=== PATIENT | male | born 1950 | race Caucasian/White ===

== ENCOUNTER 2019-12-10 08:21 | Day surgery (SDC) | payer MEDICARE ==
[2019-12-10] MEDS ORDERED: Sodium Chloride 0.9% 1,000 ML IV SCH (09:00)
[2019-12-10] MEDS ORDERED: Midazolam 1 MG/ML 2 ML SDV ONE (09:04)
[2019-12-10] MEDS ORDERED: fentaNYL 100 MCG/2 ML SDV ONE (09:04)
[2019-12-10] MEDS ORDERED: Propofol 200 MG/20 ML SDV ONE (09:04)
--- NOTE | 2019-12-10 11:24 | OR ---
DATE OF PROCEDURE: 12/10/2019 SURGEON: Conrad Wallace MD PROCEDURE: Colonoscopy. FINDINGS: Normal colonoscopy. COMPLICATIONS: None. HAND CLIPPER: None. PRE PROCEDURE DIAGNOSIS: Positive Cologuard test. POSTOPERATIVE DIAGNOSIS: Positive Cologuard test. RISKS: Risks, benefits, alternatives, and limitations including, but not limited to infection, bleeding, perforation, false positives, false negatives, and other risks not listed here were explained to the patient, who wished to proceed. PROCEDURE IN DETAIL: The patient was placed in left lateral decubitus position. Digital rectal exam was performed without abnormality. Scope was introduced and advanced atraumatically to the ileocecal valve. Scope was brought back through the ascending, transverse, descending colon, and retroflexed. No evidence of old or new blood. No masses. No polyps. No abnormalities on retroflexion. The patient tolerated the procedure well. Conrad Wallace MD /[id number]
== END 2019-12-10 10:55 | disposition home or self-care (01) ==
LOC: JP.SDS 08:21
PROVIDERS: ATTEND Surgery
DX: R19.5 Other fecal abnormalities (principal); I10 Essential (primary) hypertension
CPT/HCPCS: 45378; J2250; J2704; J3010; J7030

== ENCOUNTER 2023-02-08 00:16 | Emergency (ER) | payer MEDICARE ==
[2023-02-08] MEDS ORDERED: Ondansetron 4 MG/2 ML SDV IVPUSH ONE (00:21)
[2023-02-08] MEDS ORDERED: Furosemide 40 MG/4 ML VIAL IVPUSH ONE ×2 (00:21→02:00)
[2023-02-08 00:24] LABS: BASOPHILS ABSOLUTE AUTO 0.13 K/uL (0.00-0.10); BASOPHILS PERCENT AUTO 1.2 % (0.1-1.3); EOSINOPHILS ABSOLUTE AUTO 0.43 K/uL (0.00-0.40); HEMATOCRIT 46.2 % (38.4-49.7); HEMOGLOBIN 15.7 g/dL (12.9-16.9); IMMATURE GRAN ABSOLUTE AUTO 0.03 K/uL (0.00-0.23); IMMATURE GRAN PERCENT AUTO 0.3 % (0.0-0.7); LYMPHOCYTES ABSOLUTE AUTO 5.42 K/uL (0.8-3.3); LYMPHOCYTES PERCENT AUTO 50.3 % (11.4-47.7); MEAN CORPUSCULAR HEMOGLOBIN 29.8 pg (31.6-35.5); MEAN CORPUSCULAR VOLUME 87.7 fL (81.4-99.0); MONOCYTES ABSOLUTE AUTO 0.98 K/uL (0.20-0.90); MONOCYTES PERCENT AUTO 9.1 % (3.3-12.6); NEUTROPHILS ABSOLUTE AUTO 3.79 K/uL (1.0-7.6); NEUTROPHILS PERCENT AUTO 35.1 % (40.0-78.1); PLATELET COUNT,PLT 315 K/uL (130-375); RED BLOOD CELL COUNT 5.27 M/uL (4.14-5.76); WHITE BLOOD CELL COUNT,WBC 10.8 K/uL (3.2-11.0)
[2023-02-08 00:45] LABS: BASE EXCESS ARTERIAL -6.9 mm/L; BICARBONATE,ARTERIAL 19.7 mmol/L (22.0-26.0); CARBOXYHEMOGLOBIN 0.8 % (0.0-1.6); O2 SATURATION ARTERIAL 85.9 % (95.0-98.0); OXYHEMOGLOBIN 84.4 %; PCO2 ARTERIAL 44.4 mmHg (35.0-42.0); PO2 ARTERIAL 61.9 mmHg (75.0-100.0); TOTAL HEMOGLOBIN 16.5 g/dL (13.5-18.0)
[2023-02-08] MEDS ORDERED: Morphine 2 MG/ML SYRINGE ONE (00:45)
[2023-02-08] MEDS ORDERED: Nitroglycerin/D5W 25 MG/250 ML BOTTLE IV SCH (00:45)
[2023-02-08] MEDS ORDERED: Morphine 2 MG/ML SYRINGE IVPUSH ONE (00:46)
[2023-02-08] MEDS ORDERED: Albuterol 0.021% 0.63 MG/3 ML Neb Soln ONE (00:52)
[2023-02-08] MEDS ORDERED: Albuterol 0.083% 2.5 MG/3 ML Neb Soln ONE (00:52)
[2023-02-08] MEDS ORDERED: Albuterol/Ipratropium 3.0-0.5 MG/3 ML Neb Soln ONE (00:52)
[2023-02-08] MEDS ORDERED: Rocuronium 50 MG/5 ML Vial ONE (00:54)
[2023-02-08 01:07] LABS: ALANINE AMINOTRANSFERASE,ALT 23 U/L (12-78); ALBUMIN 3.8 g/dL (3.4-5.0); ALKALINE PHOSPHATASE 100 U/L (46-116); ANION GAP 16.1 mmol/L (5.0-14.0); ASPARTATE AMNIOTRANSFERASE,AST 25 U/L (15-37); BILIRUBIN TOTAL 0.6 mg/dL (0.2-1.0); BLOOD UREA NITROGEN,BUN 13 mg/dL (7-18); CALCIUM 8.4 mg/dL (8.5-10.1); CARBON DIOXIDE,CO2 23 mmol/L (21-32); CHLORIDE,CL 103 mmol/L (100-108); CREATININE 1.2 mg/dL (0.8-1.3); EST CRCL DRUG DOSING (CG) 46.98 mL/min; ESTIMATED GFR 63 mL/min (>60); GLUCOSE RANDOM 130 mg/dL (74-106); POTASSIUM,K 3.7 mmol/L (3.6-5.2); PROTEIN TOTAL,TP 7.8 g/dL (6.4-8.2); SODIUM,NA 142 mmol/L (140-148)
[2023-02-08] MEDS: propofoL 100 ML IV SCH ×2 (01:15→03:56)
[2023-02-08] MEDS ORDERED: propofoL 100 ML ONE ×2 (01:26→03:55)
[2023-02-08] MEDS ORDERED: Furosemide 40 MG/4 ML VIAL ONE (01:59)
[2023-02-08] MEDS ORDERED: Furosemide 20 MG/2 ML VIAL ONE (01:59)
[2023-02-08 02:03] LABS: BASE EXCESS ARTERIAL -8.3 mm/L; BICARBONATE,ARTERIAL 20.9 mmol/L (22.0-26.0); CARBOXYHEMOGLOBIN 0.6 % (0.0-1.6); METHEMOGLOBIN 0.7 %; O2 SATURATION ARTERIAL 79.9 % (95.0-98.0); OXYHEMOGLOBIN 78.9 %; PCO2 ARTERIAL 57.7 mmHg (35.0-42.0); PO2 ARTERIAL 67.5 mmHg (75.0-100.0); TOTAL HEMOGLOBIN 16.1 g/dL (13.5-18.0)
[2023-02-08] MEDS ORDERED: DOPamine/Dextrose 5%-Water 400 MG/250 ML BAG ONE (02:23)
[2023-02-08 02:24] LABS: APPEARANCE,URINE CLEAR (CLEAR); BILIRUBIN,URINE NEGATIVE (NEGATIVE); COLOR,URINE YELLOW (YELLOW); GLUCOSE,URINE NEGATIVE (NEGATIVE); KETONES,URINE NEGATIVE (NEGATIVE); LEUKOCYTE ESTERASE,URINE NEGATIVE (NEGATIVE); NITRITE,URINE NEGATIVE (NEGATIVE); OCCULT BLOOD,URINE NEGATIVE (NEGATIVE); PROTEIN,URINE NEGATIVE (NEGATIVE); UROBILINOGEN,URINE 0.2 EU/dL (0.2-1.0)
[2023-02-08] MEDS ORDERED: Heparin Sodium 5,000 Units/ML Vial IVPUSH ONE (02:28)
[2023-02-08] MEDS ORDERED: DOPamine/Dextrose 5%-Water 400 MG/250 ML BAG IV SCH (02:30)
[2023-02-08 02:32] LABS: AMORPHOUS SEDIMENT,URINE NOT SEEN; BACTERIA,URINE FEW; EPITHELIAL CELLS,URINE RARE; MUCUS,URINE NOT SEEN; RBC,URINE 0-5 (0-5); WBC,URINE 0-5 (0-5)
[2023-02-08 02:46] LABS: BASE EXCESS ARTERIAL -7.8 mm/L; BICARBONATE,ARTERIAL 21.4 mmol/L (22.0-26.0); CARBOXYHEMOGLOBIN 0.8 % (0.0-1.6); METHEMOGLOBIN 1.1 %; O2 SATURATION ARTERIAL 86.5 % (95.0-98.0); OXYHEMOGLOBIN 84.9 %; PO2 ARTERIAL 77.8 mmHg (75.0-100.0); TOTAL HEMOGLOBIN 15.4 g/dL (13.5-18.0)
[2023-02-08] MEDS ORDERED: Aspirin 81 MG Tab.Chew PO ONE (03:12)
[2023-02-08] MEDS ORDERED: Etomidate 2 MG/ML 10 ML SDV IVPUSH ONE (03:19)
[2023-02-08] MEDS ORDERED: Rocuronium 50 MG/5 ML Vial IV ONE (03:42)
[2023-02-08] MEDS ORDERED: Albuterol 0.021% 0.63 MG/3 ML Neb Soln NEB ONE (03:42)
[2023-02-08] MEDS ORDERED: Sodium Chloride 0.9% 1,000 ML IV SCH (03:45)
== END 2023-02-08 04:00 ==
LOC: JP.ED 00:16
DX: I21.9 Acute myocardial infarction, unspecified (principal); I44.7 Left bundle-branch block, unspecified; J90 Pleural effusion, not elsewhere classified; I95.9 Hypotension, unspecified; I10 Essential (primary) hypertension; Z20.822 Contact with and (suspected) exposure to COVID-19
CPT/HCPCS: 31500; 36415; 36600; 51702; 71045; 80053; 81001; 82800; 82803; 83605; 83880; 84484; 85025; 85379; 85730; 93005; 93010; 94640; 96361; 96365; 96375; 96376; 99285; A9270; J1265; J1644; J1940; J2270; J2405; J2704; J3490; J7030; U0002

== ENCOUNTER 2024-02-22 03:22 | Emergency (ER) | payer MEDICARE, OTHER ==
[2024-02-22] MEDS: Aspirin 81 MG Tab.Chew PO ONE (03:35)
[2024-02-22] MEDS: Nitroglycerin/D5W 25 MG/250 ML BOTTLE IV SCH (03:35)
[2024-02-22] MEDS ORDERED: Morphine 2 MG/ML SYRINGE IVPUSH ONE (03:49)
[2024-02-22 03:53] LABS: PROTHROMBIN TIME 10.6 sec (9.2-10.6)
[2024-02-22 03:58] LABS: A/G RATIO 1.2 (1.2-2.2); ALANINE AMINOTRANSFERASE,ALT 22 U/L (12-78); ALKALINE PHOSPHATASE 82 U/L (46-116); ANION GAP 14.7 mmol/L (5.0-14.0); ASPARTATE AMNIOTRANSFERASE,AST 21 U/L (15-37); BILIRUBIN TOTAL 0.6 mg/dL (0.2-1.0); BLOOD UREA NITROGEN,BUN 14 mg/dL (7-18); CALCIUM 8.9 mg/dL (8.5-10.1); CARBON DIOXIDE,CO2 22 mmol/L (21-32); CHLORIDE,CL 104 mmol/L (100-108); CREATININE 1.3 mg/dL (0.8-1.3); EST CRCL DRUG DOSING (CG) 39.51 mL/min; ESTIMATED GFR 57 mL/min (>60); GLUCOSE RANDOM 119 mg/dL (74-106); POTASSIUM,K 3.8 mmol/L (3.6-5.2); PROTEIN TOTAL,TP 7.4 g/dL (6.4-8.2); SODIUM,NA 141 mmol/L (140-148); TROPONIN I HIGH SENSITIVITY 16.5 pg/mL (<=60.3)
[2024-02-22] MEDS ORDERED: Heparin Sodium/D5W 25,000 UNITS/500 ML BAG IV SCH (04:00)
[2024-02-22 04:04] LABS: HEMOGLOBIN 15.9 g/dL (12.9-16.9); WHITE BLOOD CELL COUNT,WBC 4.5 K/uL (3.2-11.0)
[2024-02-22] MEDS: Heparin Sodium 5,000 Units/ML Vial IVPUSH ONE (04:04)
[2024-02-22 04:05] LABS: BAND PERCENT MAN 2 % (5-11); EOSINOPHILS PERCENT MAN 5 % (2-4); LYMPHOCYTES PERCENT MAN 45 % (24-44); MONOCYTES PERCENT MAN 11 % (2-6); PLATELET COUNT,PLT 122 K/uL (130-375); SEG NEUTROPHILS PERCENT MAN 37 % (36-66)
[2024-02-22] MEDS: Heparin Sodium/D5W 25,000 UNITS/500 ML BAG IV SCH (04:16)
[2024-02-22 05:02] LABS: BASOPHILS PERCENT MAN 0 % (0-1); METAMYELOCYTE PERCENT MAN 0 %; MYELOCYTE PERCENT MAN 0 %
== END 2024-02-22 05:30 ==
LOC: JP.ED 03:22
DX: I24.9 Acute ischemic heart disease, unspecified (principal); I10 Essential (primary) hypertension; I25.10 Atherosclerotic heart disease of native coronary artery without angina pectoris; Z79.82 Long term (current) use of aspirin; Z79.899 Other long term (current) drug therapy; Z95.5 Presence of coronary angioplasty implant and graft
CPT/HCPCS: 36415; 80053; 84484; 85004; 85018; 85049; 85610; 93005; 93010; 96365; 96366; 96368; 99285; A9270; J1644; J2305